=== PATIENT | female | born 1955 | race Caucasian/White ===

== ENCOUNTER 2018-11-09 06:41 | Inpatient (IN) ==
--- NOTE | 2018-11-09 06:57 | Anesthesia Evaluation PreOp ---
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 WORKER History: Denies Any Significant HX Other Medical History: Other (CLL) Anesthesia History: No Prior Anesthetic Complications, Past Anesthesia (partial hysterectomy, toe surgery, eye surgery) : No Alcohol Use: none Drug use: none Medications and Allergies Albuterol Sulfate [Albuterol Inhaler] 2 puff IH Q4HR PRN #1 [id number] 12/08/14 [Rx] Albuterol Neb [Proventil Neb] 2.5 mg IH QID #10 inhsol 12/21/15 [Rx] Aspirin 81 mg PO DAILY 01/14/16 [History] Ascorbate Calcium [Vitamin C] 500 mg PO DAILY 11/19/17 [History] Diclofenac Sodium 1 applic TP TID PRN #100 gm 04/25/18 [Rx] Allergy/AdvReac Type Severity Reaction Status Date / Time Amoxicillin Allergy Hives Verified 04/25/18 16:08 Erythromycin Base Allergy Hives Verified 04/25/18 16:08 Penicillins [PCN] Allergy Difficulty Verified 04/25/18 16:08 Breathing tetracycline [Tetracycline] Allergy Hives Verified 04/25/18 16:08 - Meds/Allergy Pre-op Review Medications Reviewed: Yes Allergies Reviewed: Yes Beta Blockers on Current Med List: No Anesthesia Results - Labs Laboratory Tests 11/02/18 11/02/18 13:49 13:49 WBC 62.0 H* Hgb 15.0 Hct 46.6 H Plt Count 299 Sodium 141 Potassium 4.3 Chloride 105 Carbon Dioxide 27 BUN 16 Creatinine 0.67 Est GFR (Non-Af Amer) > 60 - Imaging EKG: report reviewed Additional studies: PFT 09/2018 INTERPRETATION: Quality: Acceptable for interpretation Spirometry shows moderate airway obstructive pattern Following Bronchodilator, there is a bordeline significant improvement in FEV1 by 11%. Following Bronchodilator, there is 51% increase in small airways/mid-flows. MIP/MVV are mildly reduced this could be secondary to poor effort but also can be seen in the respiratory muscle weakness recommend clinical correlation of note MEP was normal Lung Volumes total lung capacity is normal DLCO: Normal gas exchange Flow Volume Loop: Obstructive stress 04/2016 Impression: The patient had a brief hypotensive response to regadenoson. BP quickly returned to baseline. No significant ECG changes with regadenoson. Gated LVEF > 70%. Perfusion imaging was negative for ischemia or infarct. Anesthesia Exam Vital Signs/O2 Sat/Glucose, Most Recent Temp Pulse Resp BP Pulse Ox 98.4 F 73 18 134/80 95 11/09/18 06:59 11/09/18 06:59 11/09/18 06:59 11/09/18 06:59 11/09/18 06:59 Weight: 70 kg NPO (# of Hours): > 8 hr - HEENT Pupil (Motor): Pupils equal Mallampati: II Teeth: Edentulous Oral Opening: Greater than 3 - ORDER WORKER LOC: Oriented - Cardiac Rhythm: Regular Murmur: None - Pulmonary Breath Sounds: bilateral Clear Respiratory Effort: Symmetrical Anesthesia Assess/Plan ASA Score: 3 Level of consciousness: Cooperative, Oriented Anesthetic Plan: General Monitoring Plan: Standard Monitors Recovery Plan: PACU
[2018-11-09] MEDS ORDERED: Gabapentin 300 MG CAPSULE PO ONE (07:00)
[2018-11-09] MEDS ORDERED: Acetaminophen IV 1,000 MG/100 ML INFUS..BTL IVPB ONE (07:00)
[2018-11-09] MEDS ORDERED: Famotidine 20 MG/2 ML VIAL IVP ONE (07:00)
[2018-11-09] MEDS ORDERED: Lidocaine -MPF 1% 2 ML AMPUL ONE (07:06)
[2018-11-09] MEDS ORDERED: *HR* Midazolam HCl 2 MG/2 ML VIAL ONE (07:07)
[2018-11-09] MEDS ORDERED: *HR* FentaNYL (PF) 100 MCG/2 ML VIAL ONE (07:07)
[2018-11-09] MEDS ORDERED: *HR* Propofol 200 MG/20 ML VIAL IVP ONE (07:07)
[2018-11-09] MEDS ORDERED: *HR* Rocuronium Bromide 50 MG/5 ML VIAL ONE (07:10)
[2018-11-09] MEDS ORDERED: *HR* Succinylcholine 200 MG/10 ML VIAL IVP ONE (07:10)
[2018-11-09] MEDS ORDERED: *HR* Labetalol 20 MG/4 ML SYRINGE IVP PRN (07:12)
[2018-11-09] MEDS ORDERED: Ondansetron 4 MG/2 ML VIAL IVP ONE (07:12)
[2018-11-09] MEDS ORDERED: *HR* OxyCODONE Immed Rel 5 MG TABLET PO PRN (07:12)
[2018-11-09] MEDS ORDERED: Albuterol 2.5 MG/3 ML NEBULIZER IH ONE (07:12)
[2018-11-09] MEDS ORDERED: *HR* Promethazine 25 MG/ML VIAL IVP PRN (07:12)
[2018-11-09] MEDS ORDERED: Lidocaine -MPF 2% 2 ML VIAL ONE (07:23)
--- NOTE | 2018-11-09 07:24 | History & Physical Report ---
Date of Encounter: 11/09/18 Time of Encounter: 07:23 24 Hour HP Update - Instructions Instructions: If the History and Physical is less than 30 days old and was completed prior to A.M. admission and or procedure and has NOT been updated on calendar day of procedure please complete this update prior to performing procedure. - Update Patient reports changes in Medical Condition: No Changes in examination, assessment, or condition: No Changes in Medication: No Preop tests/diagnostics Reviewed: Yes Pre-Op MRSA Screen: Negative Surgery Remains Indicated: Yes Consent for Planned Operative Procedure(s) Verified: Yes - Pre-Operative Checklist Preoperative Checklist Indicated: Yes Prophylactic Antibiotic Ordered: Yes Home Medications Include Beta Umer: No Beta Umer Taken Today (Day of Surgery): No Beta Umer Taken Yesterday (Day Prior to Surgery): No Is VTE Prophylaxis Indicated?: Yes
[2018-11-09] MEDS ORDERED: CeFAZolin Syr 2,000MG/20 ML 2,000 MG/20 ML SYRINGE IVPB ONE (07:25)
[2018-11-09] MEDS ORDERED: Ringers Solution, Lactated 1,000 ML IVC SCH (07:30)
[2018-11-09] MEDS ORDERED: EPHEDrine 50 MG/ML VIAL ONE (08:35)
[2018-11-09] MEDS ORDERED: Ketorolac 30 MG/ML VIAL ONE (08:37)
--- NOTE | 2018-11-09 10:12 | Operative Note ---
Date of procedure: 11/09/18 Pre-op diagnosis: c34.12 Post-op diagnosis: same Procedure: bronchoscopy with aspiration robotic left upper lobe wedge followed by lobecotmy lymph node dissection Anesthesia: GETA Local Anesthetics: 0.5% Sensorcaine HCL SubQ (cc) Surgeon: Darion Lockett Was there an physician assistant psychiatry present: No Estimated blood loss (cc): 10 Specimen: wedge, lobe, node [id number] Condition: stable Disposition: PACU Procedure in Detail: Patient was brought to the operating room and placed on the operating table in the supine position. After undergoing general anesthesia with sequential compressive devices on bilateral lower extremities and perioperative antibiotics on board bronchoscopy was removed and thick copious secretions aspirated from the tracheobronchial tree until clear. Patient then had a staging of the tracheobronchial tree for her new left upper lobe lung cancer which demonstrated no evidence of endobronchial metastasis constriction spread. Patient was placed on the operating room table in the right lateral decubitus position with care to pad all pressure points prepped with DuraPrep and draped in usual staff sterile fashion. Thoracoscopy ports were placed and the da Rona robot was docked. A generous wedge resection of the left upper lobe was performed with intraoperative frozen section demonstrating squamous cell carcinoma. Patient then had the agger mobilized with the artery vein and then the last artery divided with the endothoracic stapler. The fissures were completed with endothoracic stapler and the bronchus divided with the endothoracic stapler. Lymph nodes were removed from stations 1012 and 9. We did not see any lymph nodes in the periesophageal region station 5 or station 6. Hemostasis and pneumostasis were excellent. Paravertebral nerve blocks performed. 28-Chadian chest tube placed through the most anterior thoracoscopy incision after removing the da Rona robot. Chest tube was secured into place with a #2 Ethibond suture. The remaining incisions were closed with #1 Vicryl 0 Vicryl and a 4-0 Monocryl subcuticular stitch with dressings consisting of Steri-Strips and sterile gauze. Patient was extubated and taken to the recovery room breathing spontaneously and hemodynamically stable.
[2018-11-09] MEDS: *HR* HYDROmorphone (PF) 1 MG/ML SYRINGE IVP PRN ×2 (10:16→10:31)
--- NOTE | 2018-11-09 10:43 | Anesthesia Evaluation Post Op ---
Date of Encounter: 11/09/18 Time of Encounter: 10:43 - Vital Signs Vital Signs: Vital Signs/O2 Sat/Glucose, Most Recent Temp Pulse Resp BP Pulse Ox 96.8 F L 80 12 137/80 92 11/09/18 10:33 11/09/18 10:33 11/09/18 10:33 11/09/18 10:33 11/09/18 10:33 - Lungs Lungs: Clear Ascult./Percussion - Airway Airway: Non-obstructed - Cardiovascular Regular Rate - Mental Status Mental Status: Alert & Oriented, Answers Appropriately - Pain Pain Scale: 0 - Nausea Vomiting Nausea Vomiting: Not Present - Hydration Hydration: Ice chips - Discharge PostOp Status: Transfer Patient to floor
[2018-11-09] MEDS ORDERED: Ondansetron 4 MG/2 ML VIAL IVP PRN (11:07)
[2018-11-09] MEDS ORDERED: Naloxone 0.4 MG/ML INJ IVP PRN (11:07)
[2018-11-09] MEDS: Ketorolac 15 MG/ML VIAL IVP SCH ×2 (13:00→18:04)
[2018-11-09] MEDS: *HR* HYDROcodone/Acet 5/325 mg TABLET PO PRN ×2 (13:00→18:50)
[2018-11-09] MEDS: 0.9 % Sodium Chloride 1,000 ML IVC SCH (13:01)
[2018-11-09] MEDS: *HR* Heparin 5,000 UNIT/ML VIAL SQ SCH ×2 (13:01→20:32)
[2018-11-09] MEDS: Ipratropium/Albuterol Neb 3 ML IH SCH ×3 (15:03→20:25)
[2018-11-09] MEDS: Gabapentin 300 MG CAPSULE PO SCH ×2 (15:05→20:31)
[2018-11-09] MEDS: Sennosides/Docusate Sodium TABLET PO SCH (20:32)
[2018-11-09] MEDS: Famotidine 20 MG TABLET PO SCH (20:32)
[2018-11-10] MEDS: Ipratropium/Albuterol Neb 3 ML IH SCH ×8 (00:01→23:28)
[2018-11-10] MEDS: Ketorolac 15 MG/ML VIAL IVP SCH ×5 (00:39→23:36)
[2018-11-10] MEDS: 0.9 % Sodium Chloride 1,000 ML IVC SCH (00:39)
[2018-11-10 02:11] LABS: Hemoglobin 13.7 g/dL (11.5-15.4); Red Cell Distribution Width 13.7 % (11.5-14.5)
[2018-11-10 02:13] LABS: Hematocrit 42.7 % (35.3-44.9); Mean Corpuscular HGB Conc 32.1 g/dL (31.6-35.5); Mean Corpuscular Hemoglobin 33.4 pg (28.0-33.3); Mean Corpuscular Volume 104.1 fL (83.0-100.0); Mean Platelet Volume 11.4 fL (9.4-12.4); Platelet Count 252 K/mcL (140-400)
[2018-11-10 02:15] LABS: White Blood Count 53.6 K/mcL (4.3-11.1)
[2018-11-10 02:29] LABS: % Iron Saturation 28 % (15-50); BUN/Creatinine Ratio 20 (6-26); Blood Urea Nitrogen 14 mg/dL (8-23); Calcium 7.9 mg/dL (8.6-10.3); Carbon Dioxide 23 mEq/L (23-29); Chloride 104 mEq/L (98-107); Glucose 186 mg/dL (70-105); Iron 67 mcg/dL (50-170); Magnesium 1.9 mg/dL (1.6-2.6); Osmolality,Calculated 287 (280-300); Potassium 4.3 mEq/L (3.5-5.1); Sodium 136 mEq/L (136-145); Transferrin 170 mg/dL (203-362); eGFR For African Americans > 60 (> 60); eGFR For Non-African Americans > 60 (> 60)
[2018-11-10] MEDS: *HR* Heparin 5,000 UNIT/ML VIAL SQ SCH ×3 (04:23→20:11)
[2018-11-10] MEDS: *HR* HYDROcodone/Acet 5/325 mg TABLET PO PRN ×2 (05:46→09:50)
[2018-11-10] MEDS: Loratadine 10 MG TABLET PO SCH (08:04)
[2018-11-10] MEDS: Gabapentin 300 MG CAPSULE PO SCH ×3 (08:04→20:09)
[2018-11-10] MEDS: Sennosides/Docusate Sodium TABLET PO SCH ×2 (08:04→20:09)
[2018-11-10] MEDS: Famotidine 20 MG TABLET PO SCH ×2 (08:05→20:09)
[2018-11-10] MEDS: Aspirin 81 MG TAB.CHEW PO SCH (08:05)
[2018-11-10] MEDS: ANORO ELLIPTA IH SCH (08:08)
--- NOTE | 2018-11-10 08:44 | Cardiothoracic Progress Note ---
Date of Encounter: 11/10/18 Time of Encounter: 08:42 - Assessment and plan (1) Malignant neoplasm of upper lobe, left bronchus or lung Current Visit: Yes Status: Acute The assessment and plan as outlined above was discussed with the patient and/or family members who expressed understanding and agreement. All questions were answered. updated patient, continue chest tube stop ivf replace mg (2) COPD (chronic obstructive pulmonary disease) Current Visit: No Status: Chronic The assessment and plan as outlined above was discussed with the patient and/or family members who expressed understanding and agreement. All questions were answered. continue bronchodilators Qualifiers: COPD type: emphysema Emphysema type: panlobular Qualified Code(s): J43.1 - Panlobular emphysema (3) CLL (chronic lymphocytic leukemia) Current Visit: No Status: Chronic The assessment and plan as outlined above was discussed with the patient and/or family members who expressed understanding and agreement. All questions were answered. no changes Vital Signs, Last 4 Hours Temp Pulse Resp BP Pulse Ox 11/10/18 07:38 16 95 11/10/18 07:11 98.2 F 76 16 140/73 94 Oxgyen Flow Rate Oxygen Flow Rate (LPM) 0 Clinical Data, last 8 Hours Output, Chest Tube Drainage 32 Amount [Left Lateral Chest] Output, Urine Amount 300 Output, Urine Amount 300 Weight 11/08/18 11/09/18 11/10/18 23:59 23:59 23:59 Weight 70.307 kg 70.3 kg - Physical Examination General: Conversant, No Apparent Distress, Well developed, Well nourished HEENT: Atraumatic, Normocephaly Cardiac: Reg Rate and Rhythm, Normal S1 and S2 Incision: No signs of infection, Dry/intact dressing Chest tubes: Minimal drainage, Air leak Lungs: Normal Breath Sounds Neuro: Alert and responsive, No focal deficits noted Vascular: Normal capillary refill Abdomen: Soft, Non-tender - Labs 11/10/18 01:49 11/10/18 01:49 Lab Results, Last 24 hours 11/10/18 11/10/18 01:49 01:49 WBC 53.6 H* Hgb 13.7 Hct 42.7 Plt Count 252 Sodium 136 Potassium 4.3 Chloride 104 Carbon Dioxide 23 BUN 14 Creatinine 0.69 Glucose 186 H Calcium 7.9 L Magnesium 1.9 - Imaging Chest Xray: image reviewed Consult Discharge Plan - Plan Referrals: Jaswinder Cooper MD [Primary Care Provider] - Darion Lockett MD [Partnered Physician] -
[2018-11-10] MEDS ORDERED: Amiodarone Premix 150 MG/100 ML BAG IVPB ONE (20:22)
[2018-11-10] MEDS ORDERED: Amiodarone Premix 360 MG/200 ML BAG IVC ONE (20:23)
[2018-11-10] MEDS ORDERED: Amiodarone Premix 360 MG/200 ML BAG IVC SCH (20:30)
[2018-11-11] MEDS: Ipratropium/Albuterol Neb 3 ML IH SCH ×5 (03:52→20:29)
[2018-11-11] MEDS: *HR* Heparin 5,000 UNIT/ML VIAL SQ SCH ×3 (06:05→21:39)
[2018-11-11] MEDS: Ketorolac 15 MG/ML VIAL IVP SCH ×3 (06:07→18:28)
[2018-11-11] MEDS: ANORO ELLIPTA IH SCH (08:53)
[2018-11-11] MEDS: Sennosides/Docusate Sodium TABLET PO SCH ×2 (08:54→21:38)
[2018-11-11] MEDS: Famotidine 20 MG TABLET PO SCH ×2 (08:54→21:38)
[2018-11-11] MEDS: Gabapentin 300 MG CAPSULE PO SCH ×3 (08:54→21:39)
[2018-11-11] MEDS: Loratadine 10 MG TABLET PO SCH (08:54)
[2018-11-11] MEDS: Aspirin 81 MG TAB.CHEW PO SCH (08:54)
--- NOTE | 2018-11-11 10:00 | Cardiothoracic Progress Note ---
Date of Encounter: 11/11/18 Time of Encounter: 09:59 - Assessment and plan (1) Malignant neoplasm of upper lobe, left bronchus or lung Current Visit: Yes Status: Acute The assessment and plan as outlined above was discussed with the patient and/or family members who expressed understanding and agreement. All questions were answered. updated patient, continue chest tube. clamp at midnight. labs in am. (2) COPD (chronic obstructive pulmonary disease) Current Visit: No Status: Chronic The assessment and plan as outlined above was discussed with the patient and/or family members who expressed understanding and agreement. All questions were answered. continue bronchodilators Qualifiers: COPD type: emphysema Emphysema type: panlobular Qualified Code(s): J43.1 - Panlobular emphysema (3) CLL (chronic lymphocytic leukemia) Current Visit: No Status: Chronic The assessment and plan as outlined above was discussed with the patient and/or family members who expressed understanding and agreement. All questions were answered. no changes (4) Postoperative atrial fibrillation Current Visit: Yes Status: Acute The assessment and plan as outlined above was discussed with the patient and/or family members who expressed understanding and agreement. All questions were answered. change amiodarone to po and start metoprolol xl Vital Signs, Last 4 Hours Temp Pulse Resp BP Pulse Ox 11/11/18 08:05 72 11/11/18 07:50 17 95 11/11/18 07:21 97.5 F L 77 17 128/80 95 11/11/18 06:00 77 144/89 Oxgyen Flow Rate Oxygen Flow Rate (LPM) 2 Clinical Data, last 8 Hours Output, Chest Tube Drainage 45 Amount [Left Lateral Chest] Output, Urine Amount 200 Weight 11/09/18 11/10/18 11/11/18 23:59 23:59 23:59 Weight 70.307 kg 70.3 kg - Physical Examination General: Conversant, No Apparent Distress, Well developed, Well nourished HEENT: Atraumatic, Normocephaly Neck: No JVD Cardiac: Reg Rate and Rhythm, Normal S1 and S2 Incision: No signs of infection, Dry/intact dressing Sternum: Stable Chest tubes: Minimal drainage Lungs: Normal Breath Sounds Neuro: Alert and responsive, No focal deficits noted, Cranial nerves intact, Motor nerves intact Abdomen: Soft, Non-tender, Other (flatus ) Extremities: No Clubbing, No Edema - Labs 11/10/18 01:49 11/10/18 01:49 - Imaging Chest Xray: image reviewed Consult Discharge Plan - Plan Referrals: Jaswinder Cooper MD [Primary Care Provider] - (office said they would call the patient at home with follow up ) Darion Lockett MD [Partnered Physician] -
[2018-11-11] MEDS ORDERED: Metoprolol XL (24 HR) Succ 25 MG TAB.ER.24H PO SCH (10:30)
[2018-11-11] MEDS: *HR* Amiodarone 200 MG TABLET PO SCH (12:55)
[2018-11-11] MEDS ORDERED: Amiodarone Premix 150 MG/100 ML BAG IVPB ONE (17:45)
[2018-11-11] MEDS ORDERED: Metoprolol XL (24 HR) Succ 25 MG TAB.ER.24H PO ONE (17:58)
[2018-11-11] MEDS ORDERED: Amiodarone Premix 360 MG/200 ML BAG IVC ONE (18:00)
[2018-11-12] MEDS ORDERED: Amiodarone Premix 360 MG/200 ML BAG IVC SCH
[2018-11-12] MEDS: Ipratropium/Albuterol Neb 3 ML IH SCH ×6 (00:03→20:28)
[2018-11-12] MEDS: Ketorolac 15 MG/ML VIAL IVP SCH ×4 (00:48→18:25)
[2018-11-12 01:18] LABS: Hemoglobin 13.7 g/dL (11.5-15.4); Mean Platelet Volume 11.7 fL (9.4-12.4)
[2018-11-12 01:20] LABS: Hematocrit 42.3 % (35.3-44.9); Mean Corpuscular HGB Conc 32.4 g/dL (31.6-35.5); Mean Corpuscular Hemoglobin 32.7 pg (28.0-33.3); Platelet Count 240 K/mcL (140-400); Red Blood Count 4.19 M/mcL (3.82-4.97)
[2018-11-12 01:26] LABS: White Blood Count 52.4 K/mcL (4.3-11.1)
[2018-11-12 01:36] LABS: BUN/Creatinine Ratio 20 (6-26); Blood Urea Nitrogen 11 mg/dL (8-23); Calcium 8.7 mg/dL (8.6-10.3); Carbon Dioxide 26 mEq/L (23-29); Chloride 100 mEq/L (98-107); Magnesium 1.9 mg/dL (1.6-2.6); Potassium 4.4 mEq/L (3.5-5.1); Sodium 129 mEq/L (136-145); eGFR For African Americans > 60 (> 60); eGFR For Non-African Americans > 60 (> 60)
[2018-11-12 02:40] LABS: Glucose 129 mg/dL (70-105); Osmolality,Calculated 269 (280-300)
[2018-11-12] MEDS: *HR* Heparin 5,000 UNIT/ML VIAL SQ SCH ×3 (05:18→21:51)
--- NOTE | 2018-11-12 09:03 | Cardiothoracic Progress Note ---
Date of Encounter: 11/12/18 Time of Encounter: 09:02 - Assessment and plan (1) Malignant neoplasm of upper lobe, left bronchus or lung Current Visit: Yes Status: Acute The assessment and plan as outlined above was discussed with the patient and/or family members who expressed understanding and agreement. All questions were answered. updated patient, removed chest tube xray in am (2) COPD (chronic obstructive pulmonary disease) Current Visit: No Status: Chronic The assessment and plan as outlined above was discussed with the patient and/or family members who expressed understanding and agreement. All questions were answered. continue bronchodilators Qualifiers: COPD type: emphysema Emphysema type: panlobular Qualified Code(s): J43.1 - Panlobular emphysema (3) CLL (chronic lymphocytic leukemia) Current Visit: No Status: Chronic The assessment and plan as outlined above was discussed with the patient and/or family members who expressed understanding and agreement. All questions were answered. no changes (4) Postoperative atrial fibrillation Current Visit: Yes Status: Acute The assessment and plan as outlined above was discussed with the patient and/or family members who expressed understanding and agreement. All questions were answered. change amiodarone to po and start metoprolol xl at 50 mg Vital Signs, Last 4 Hours Temp Pulse Resp BP Pulse Ox 11/12/18 07:55 16 93 11/12/18 07:07 98.2 F 71 18 150/77 92 11/12/18 05:20 68 149/82 92 Oxgyen Flow Rate Oxygen Flow Rate (LPM) 3 Clinical Data, last 8 Hours Output, Chest Tube Drainage 0 Amount [Left Lateral Chest] Output, Urine Amount 200 Weight 11/10/18 11/11/18 11/12/18 23:59 23:59 23:59 Weight 70.3 kg 69.5 kg - Physical Examination General: Conversant, No Apparent Distress, Well developed, Well nourished HEENT: Atraumatic, Normocephaly Cardiac: Reg Rate and Rhythm, Normal S1 and S2 Incision: No signs of infection, Dry/intact dressing, Open to air Chest tubes: Minimal drainage Lungs: Normal Breath Sounds Neuro: Alert and responsive, No focal deficits noted, Cranial nerves intact, Motor nerves intact Abdomen: Soft, Non-tender Extremities: No Clubbing, No Edema - Labs 11/12/18 00:33 11/12/18 00:33 Lab Results, Last 24 hours 11/12/18 11/12/18 00:33 00:33 WBC 52.4 H* Hgb 13.7 Hct 42.3 Plt Count 240 Sodium 129 L Potassium 4.4 Chloride 100 Carbon Dioxide 26 BUN 11 Creatinine 0.55 L Glucose 129 H Calcium 8.7 Magnesium 1.9 - Imaging Chest Xray: image reviewed Consult Discharge Plan - Plan Referrals: Jaswinder Cooper MD [Primary Care Provider] - (office said they would call the patient at home with follow up ) Darion Lockett MD [Partnered Physician] -
[2018-11-12] MEDS: Gabapentin 300 MG CAPSULE PO SCH ×3 (09:13→21:51)
[2018-11-12] MEDS: Loratadine 10 MG TABLET PO SCH (09:14)
[2018-11-12] MEDS: Sennosides/Docusate Sodium TABLET PO SCH ×2 (09:14→21:51)
[2018-11-12] MEDS: Aspirin 81 MG TAB.CHEW PO SCH (09:14)
[2018-11-12] MEDS: ANORO ELLIPTA IH SCH (09:14)
[2018-11-12] MEDS: Metoprolol XL (24 HR) Succ 25 MG TAB.ER.24H PO SCH (09:14)
[2018-11-12] MEDS: Famotidine 20 MG TABLET PO SCH ×2 (09:14→21:51)
[2018-11-12] MEDS: *HR* Amiodarone 200 MG TABLET PO SCH (09:26)
[2018-11-12] MEDS ORDERED: Metoprolol XL (24 HR) Succ 25 MG TAB.ER.24H PO ONE (17:45)
[2018-11-12] MEDS: *HR* HYDROcodone/Acet 5/325 mg TABLET PO PRN (21:50)
[2018-11-13] MEDS: Ipratropium/Albuterol Neb 3 ML IH SCH ×4 (00:05→11:17)
[2018-11-13] MEDS: Ketorolac 15 MG/ML VIAL IVP SCH ×3 (02:34→12:46)
[2018-11-13] MEDS: *HR* Heparin 5,000 UNIT/ML VIAL SQ SCH (05:53)
[2018-11-13] MEDS: *HR* Amiodarone 200 MG TABLET PO SCH (07:51)
[2018-11-13] MEDS: Sennosides/Docusate Sodium TABLET PO SCH (07:51)
[2018-11-13] MEDS: Famotidine 20 MG TABLET PO SCH (07:51)
[2018-11-13] MEDS: Aspirin 81 MG TAB.CHEW PO SCH (07:51)
[2018-11-13] MEDS: Gabapentin 300 MG CAPSULE PO SCH (07:51)
[2018-11-13] MEDS: *HR* HYDROcodone/Acet 5/325 mg TABLET PO PRN (07:51)
[2018-11-13] MEDS: Loratadine 10 MG TABLET PO SCH (07:51)
[2018-11-13] MEDS: Metoprolol XL (24 HR) Succ 25 MG TAB.ER.24H PO SCH (10:19)
[2018-11-13 11:25] VITALS: BP 109/62
--- NOTE | 2018-11-13 12:32 | Electrocardiograph Report ---
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
--- NOTE | 2018-11-13 12:51 | Discharge Summary ---
Orders not resulted at time of discharge: Pending orders 11/09/18 08:25 Surgical Pathology [PTH] Stat 11/09/18 09:48 Surgical Pathology [PTH] Routine Date of Encounter: 11/13/18 Time of Encounter: 12:49 - Discharge Diagnosis (1) Malignant neoplasm of upper lobe, left bronchus or lung Priority: Primary Status: Acute (2) COPD (chronic obstructive pulmonary disease) Priority: Secondary Status: Chronic Qualifiers: COPD type: emphysema Emphysema type: panlobular Qualified Code(s): J43.1 - Panlobular emphysema (3) CLL (chronic lymphocytic leukemia) Priority: Secondary Status: Chronic (4) Postoperative atrial fibrillation Priority: Primary Status: Acute - Hospital Course Hospital course: Ms. Noland is a 63 year old female - Time Spent with Patient Total time spent providing and/or coordinating discharge services: - Discharge Medications Prescriptions: No Action Albuterol Neb [Proventil Neb] 2.5 mg IH QID #10 inhsol Aspirin 81 mg PO DAILY Diclofenac Sodium 1 applic TP TID PRN #100 gm PRN Reason: shoulder pain Cyclobenzaprine HCl 10 mg PO TID PRN PRN Reason: Muscle Spasm Cetirizine HCl 5 mg PO DAILY Umeclidinium Brm/Vilanterol Tr [Anoro Ellipta 62.5-25 Mcg INH] 1 puff IH DAILY Albuterol Sulfate [Ventolin Hfa] 2 puff IH Q4H PRN PRN Reason: Shortness Of Breath Ibuprofen 800 mg PO TID PRN PRN Reason: Mild To Moderate Pain Home Medications: Albuterol Neb [Proventil Neb] 2.5 mg IH QID #10 inhsol 12/21/15 [Rx] Aspirin 81 mg PO DAILY 01/14/16 [History] Diclofenac Sodium 1 applic TP TID PRN #100 gm 04/25/18 [Rx] Albuterol Sulfate [Ventolin Hfa] 2 puff IH Q4H PRN 11/09/18 [History] Cetirizine HCl 5 mg PO DAILY 11/09/18 [History] Cyclobenzaprine HCl 10 mg PO TID PRN 11/09/18 [History] Ibuprofen 800 mg PO TID PRN 11/09/18 [History] Umeclidinium Brm/Vilanterol Tr [Anoro Ellipta 62.5-25 Mcg INH] 1 puff IH DAILY 11/09/18 [History] Allergies/Adverse Reactions: Allergy/AdvReac Type Severity Reaction Status Date / Time Amoxicillin Allergy Hives Verified 11/09/18 17:52 Erythromycin Base Allergy Hives Verified 11/09/18 17:52 Penicillins [PCN] Allergy Difficulty Verified 11/09/18 17:52 Breathing tetracycline [Tetracycline] Allergy Hives Verified 11/09/18 17:52 Date of admission: 11/09/18 10:43 Primary care physician: Jaswinder Cooper MD Procedure(s) Performed: bronchoscopy, robotic left upper lobe wedge and lobectomy, lymph node dissection Discharging clinician: Darion Lockett Anticipated date of discharge: 11/13/18 Physical Examination Vital Signs, Last 4 Hours Temp Pulse Resp BP Pulse Ox 11/13/18 11:21 97.6 F 69 18 109/62 98 11/13/18 11:19 16 91 11/13/18 11:05 78 General: Conversant, No Apparent Distress, Well developed, Well nourished HEENT: Atraumatic Cardiac: Reg Rate and Rhythm, Normal S1 and S2 Lungs: Normal Breath Sounds Neuro: Alert and responsive, No focal deficits noted, Cranial nerves intact, Motor nerves intact, Other (disconjugate gauze is chronic) Vascular: Normal capillary refill Abdomen: Soft, Non-tender - Patient Status Disposition: Home, Self-Care Condition: Good Functional capacity at discharge: independent ambulation Overall status at discharge: patient is back to baseline - Discharge Instructions Follow Up With: Jaswinder Cooper MD [Primary Care Provider] - 11/17/18 11:15 am ( ) Darion Lockett MD [Partnered Physician] - 12/12/18 8:50 am - Diet and Activity Activity: other (no driving if taking pain medications, remove gauze on tuesday ) Diet: advance to your usual diet
== END 2018-11-13 13:20 | disposition home or self-care (01) | DRG 164 ==
LOC: SAMDAY 06:41 → 2NNU 10:43
PROVIDERS: ADMIT Thoracic Surgery (Cardiothoracic Vascular Surgery); ATTEND Thoracic Surgery (Cardiothoracic Vascular Surgery)